=== PATIENT | female | born 1975 | race Caucasian/White ===

== ENCOUNTER 2022-03-15 19:04 | Emergency (ER) | payer OTHER ==
[2022-03-15] MEDS ORDERED: ACETAMINOPHEN 500 MG TAB ONE (20:54)
[2022-03-15] MEDS ORDERED: IBUPROFEN 400 MG TAB ONE (20:54)
--- NOTE | 2022-03-15 21:18 | RAD REPORT ---
EXAM DESCRIPTION: RAD - Ankle Left 3 View - 03/15/2022 8:43 pm CLINICAL HISTORY: PAIN, slip and fall COMPARISON: No comparisons FINDINGS: No fracture, dislocation or periosteal reaction. No joint effusion seen. No joint space na rrowing. Small Achilles spur is present. There is a moderate size plantar spur. No soft tissue abnormality. IMPRESSION: Negative left ankle for fracture or other acute finding.
--- NOTE | 2022-03-15 21:19 | RAD REPORT ---
EXAM DESCRIPTION: RAD - Hand Right 3 View - 03/15/2022 8:43 pm CLINICAL HISTORY: PAIN, not further localized, subsequent to fall COMPARISON: No comparisonsNone. FINDINGS: No fracture is identified. There is no dislocation or periosteal reaction noted. IP joints are slightly narrowed. No spurring or erosive component. No foreign body or significant soft tissue abnormality. IMPRESSION: Negative right hand examination for acute or significant finding.
--- NOTE | 2022-03-15 21:37 | EDPHYS ---
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 - Social history:: Smoking status: Patient denies any tobacco usage or history of. - Immunization history: Last tetanus immunization: - up to date. Vital Signs: 19:44 BP 132 / 78; Pulse 79; Resp 18; Temp 99.5; Pulse Ox 100% ; Weight 74.84 kg; Height 5 kd3 ft. 3 in. (160.02 cm); Pain 5/10; 19:44 Body Mass Index 29.23 (74.84 kg, 160.02 cm) kd3 Hue Coma Score: 22:06 Eye Response: spontaneous(4). Verbal Response: oriented(5). Motor Response: obeys kl commands(6). Total: 15. Trauma Score (Adult): 22:06 Eye Response: spontaneous(1); Verbal Response: oriented(1); Motor Response: obeys kl commands(2); Systolic BP: > 89 mm Hg(4); Respiratory Rate: 10 to 29 per min(4); Hue Score: 15; Trauma Score: 12 MDM: 20:22 Patient medically screened. 03/15 19:51 Order name: XRAY Ankle LEFT 3 view; Complete Time: 21:26 3 03/15 21:26 Interpretation: Report reviewed. 03/15 19:51 Order name: XRAY Hand RIGHT 3 View; Complete Time: 21:26 3 03/15 21:27 Interpretation: Report reviewed. 03/15 21:05 Order name: Ankle Splint: Aircast; Complete Time: 21:49 03/15 21:05 Order name: Finger Splint; Complete Time: 21:49 cp 03/15 21:31 Order name: Crutches; Complete Time: 21:49 cp Administered Medications: 20:53 Drug: Ibuprofen 800 mg Route: PO; kl 20:53 Drug: Tylenol 1000 mg Route: PO; kl 22:02 Drug: traMADol 50 mg Route: PO; kl 22:06 Follow up: Response: No adverse reaction kl Disposition Summary: 03/15/22 21:36 Discharge Ordered Location: Home cp Problem: new cp Symptoms: have improved cp Condition: Stable cp Diagnosis - Sprain of ankle - left cp - Pain in right finger(s) - right middle from fall cp - Fall on same level from slipping, tripping and stumbling without subsequent cp striking against object Followup: cp - With: Bc Ponce MD - When: 2 - 3 days - Reason: Recheck today's complaints Discharge Instructions: - Discharge Summary Sheet cp - Ankle Sprain cp - Finger Sprain, Adult cp Forms: - Medication Reconciliation Form cp - Thank You Letter cp - Antibiotic Education cp - Prescription Opioid Use cp Prescriptions: - Naprosyn 500 mg Oral Tablet - take 1 tablet by ORAL route 2 times per day take with food; 20 tablet; Refills: cp 0, Product Selection Permitted - Tramadol 50 mg Oral Tablet - take 1 tablet by ORAL route every 8 hours as needed; 12 tablet; Refills: 0, cp Product Selection Permitted Signatures: Dispatcher [employer] Meenakshi Horne RN RN Christopher Mart PA PA cp Doucette, Kyli RN RN kd3
--- NOTE | 2022-03-15 21:37 | ER ---
Nurse's Notes [facility] Name: Martha Perdomo Age: 47 yrs Sex: Female : 1975 Arrival Date: 03/15/2022 Time: 19:08 Bed 9 Private MD: Diagnosis: Sprain of ankle-left;Pain in right finger(s)-right middle from fall;Fall on same level from slipping, tripping and stumbling without subsequent striking against object Presentation: 03/15 19:44 Chief complaint: Patient states: I slipped and fell here at the hospital and landed on kd3 my right hand and my left ankle. Coronavirus screen: Vaccine status: Patient reports being unvaccinated. Ebola Screen: No symptoms or risks identified at this time. Initial Sepsis Screen: Does the patient meet any 2 criteria? No. Patient's initial sepsis screen is negative. Does the patient have a suspected source of infection? No. Patient's initial sepsis screen is negative. Risk Assessment: Do you want to hurt yourself or someone else? Patient reports no desire to harm self or others. Onset of symptoms was March 15, 2022. 19:44 Method Of Arrival: Wheelchair kd3 19:44 Acuity: LEONARDO 3 kd3 22:07 Care prior to arrival: None. 22:08 Mechanism of Injury: Fall. Trauma event details: Injury occurred in the [facility], Injury occurred: in a public building. Injury occurred: March 15, 2022 Injury occurred at: 20:15. Triage Assessment: 19:47 General: Appears in no apparent distress. Behavior is calm, cooperative. Pain: kd3 Complains of pain in left lateral ankle. 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 - Social history:: Smoking status: Patient denies any tobacco usage or history of. - Immunization history: Last tetanus immunization: - up to date. Screenin:56 Abuse screen: Denies threats or abuse. Nutritional screening: No deficits noted. kl Tuberculosis screening: No symptoms or risk factors identified. Fall risk At risk due to injury, prior history of falls. 22:08 Fall Risk Secondary diagnosis (15 points) Ambulatory Aid- Crutches/Cane/Walker (15 pts).kl Primary Survey: 20:55 NO uncontrolled hemorrhage observed. A: The client is awake and alert. The airway is kl patent. The client responds to verbal stimuli. Airway: patent. Breathing/Chest: Spontaneous respiratory effort, equal unlabored respirations, breath sounds clear bilaterally, regular pattern, symmetrical chest rise and fall. Circulation: No external hemorrhage present. Regular and strong central pulse, skin warm/dry/normal color. Disability Pupils are equal, round, reactive to light and accommodation. 22:07 Reassessment Breathing: Spontaneous respiratory effort, equal unlabored respirations, kl breath sounds clear bilaterally, regular pattern with symmetrical chest rise and fall. 22:07 Exposure/Environment: ankle swelling. Reassessment Alertness and Airway: Awake and kl alert. The airway is patent. Airway Patent. Assessment: 20:53 General: Appears uncomfortable, well groomed, well developed, well nourished, Behavior kl is calm, cooperative. Pain: Complains of pain in left lateral ankle Pain currently is 5 out of 10 on a pain scale. Quality of pain is described as throbbing, Pain began 1 hour ago. Alleviated by rest, cold application. Neuro: No deficits noted. EENT: No deficits noted. Cardiovascular: No deficits noted. Respiratory: No deficits noted. Reports. GI: No deficits noted. : No deficits noted. Derm: No deficits noted. Musculoskeletal: Circulation, motion, and sensation intact. Capillary refill < 3 seconds, Range of motion: limited in left leg Swelling present in left lateral ankle. Injury Description: fall. Vital Signs: 19:44 BP 132 / 78; Pulse 79; Resp 18; Temp 99.5; Pulse Ox 100% ; Weight 74.84 kg; Height 5 kd3 ft. 3 in. (160.02 cm); Pain 5/10; 19:44 Body Mass Index 29.23 (74.84 kg, 160.02 cm) kd3 Hue Coma Score: 22:06 Eye Response: spontaneous(4). Verbal Response: oriented(5). Motor Response: obeys kl commands(6). Total: 15. Trauma Score (Adult): 22:06 Eye Response: spontaneous(1); Verbal Response: oriented(1); Motor Response: obeys kl commands(2); Systolic BP: > 89 mm Hg(4); Respiratory Rate: 10 to 29 per min(4); Hue Score: 15; Trauma Score: 12 ED Course: 19:08 Patient arrived in ED. ja2 19:34 Christopher Hendrickson PA is PHCP. cp 19:34 Dustin Meyer MD is Attending Physician. cp 19:47 Triage completed. kd3 19:47 Arm band placed on left wrist. kd3 20:45 XRAY Ankle LEFT 3 view In Process Unspecified. EDMS 20:45 XRAY Hand RIGHT 3 View In Process Unspecified. EDMS 21:34 Bc Ponce MD is Referral Physician. cp 21:49 Crutch training done. Aluminum finger splint applied to palmar aspect of distal phalanx mh5 of right middle finger, palmar aspect of middle phalanx of right middle finger and palmar aspect of proximal phalanx of right middle finger. 22:07 No provider procedures requiring assistance completed. Patient did not have IV access kl during this emergency room visit. 22:09 Patient has correct armband on for positive identification. kl 22:09 Patient maintains SpO2 saturation greater than 95% on room air. kl 22:09 Thermoregulation: warm blanket given to patient. kl Administered Medications: 20:53 Drug: Ibuprofen 800 mg Route: PO; kl 20:53 Drug: Tylenol 1000 mg Route: PO; kl 22:02 Drug: traMADol 50 mg Route: PO; kl 22:06 Follow up: Response: No adverse reaction kl Medication: 22:09 VIS not applicable for this client. kl Intake: 22:06 PO: 320ml; Total: 320ml. kl Outcome: 21:36 Discharge ordered by . cp 22:06 Discharged to home ambulatory. kl 22:06 Condition: good 22:06 Discharge instructions given to patient, Instructed on discharge instructions, follow up and referral plans. medication usage, crutch walking, Demonstrated understanding of instructions, follow-up care, medications, crutch walking, Prescriptions given X 2. 22:08 Patient's length of stay was not longer than 2 hours. kl 22:10 Patient left the ED. kl Signatures: Dispatcher [employer] EDMS Meenakshi Pretty RN RN Christopher Mart PA PA cp Martinez, Maria 5 Alicia Keyes [facility] Yuliet Mendoza, RN RN kd3
[2022-03-15] MEDS ORDERED: TRAMADOL HCL 50 MG TAB ONE (22:04)
[2022-03-16 03:23] VITALS: BP 132/78; TEMP 99.5; O2SAT 100
== END 2022-03-15 22:10 | disposition home or self-care (01) ==
LOC: ER 19:04
DX: S93.402A Sprain of unspecified ligament of left ankle, initial encounter (principal); M79.644 Pain in right finger(s); W01.0XXA Fall on same level from slipping, tripping and stumbling without subsequent striking against object, initial encounter; Y92.239 Unspecified place in hospital as the place of occurrence of the external cause